=== PATIENT | male | born 1980 | race African-American/Black ===

== ENCOUNTER 2023-12-16 07:09 | Emergency (ER) | payer MEDICAID, MEDICARE ==
[~2023-12-16] VITALS: Ht 175.3 cm; Wt 82.0 kg
[2023-12-16 07:32] VITALS: O2SAT 99
[2023-12-16] MEDS: CHLORDIAZEPOXIDE 25MG CAPSULE PO NR (09:02)
[2023-12-16 10:15] VITALS: BP 112/92; PULSE 72; RESP 18; TEMP 36.94740; O2SAT 98
== END 2023-12-16 10:37 | disposition home or self-care (01) ==
LOC: ER 07:09
DX: F10.239 Alcohol dependence with withdrawal, unspecified (principal); Y90.9 Presence of alcohol in blood, level not specified
CPT/HCPCS: 99291

== ENCOUNTER 2024-03-03 13:51 | Emergency (ER) | payer MEDICARE, OTHER ==
[~2024-03-03] VITALS: Ht 175.3 cm; Wt 79.0 kg
[2024-03-03 14:01] VITALS: TEMP 98.3; O2SAT 100
[2024-03-03] MEDS ORDERED: DOXY100T2 MT (15:21)
[2024-03-03 15:37] VITALS: BP 142/91; PULSE 82; RESP 16; O2SAT 99
[2024-03-03] MEDS: CEFTRIAXONE SODIUM 500MG VIAL IM STA (15:42)
[2024-03-03] MEDS: DOXYCYCLINE HYCLATE 100MG CAPSULE PO SCH (15:43)
[2024-03-03] MEDS: CEFTRIAXONE SODIUM 500MG VIAL IM SCH (15:45)
[2024-03-03] MEDS: DOXYCYCLINE HYCLATE 100MG CAPSULE PO STA (15:47)
== END 2024-03-03 15:49 | disposition home or self-care (01) ==
LOC: ER 14:05
DX: N45.1 Epididymitis (principal)
CPT/HCPCS: 76870; 93976; 96372; 99285; J0696

== ENCOUNTER 2024-04-01 10:22 | Emergency (ER) | payer OTHER ==
[~2024-04-01] VITALS: Ht 175.3 cm; Wt 80.7 kg
[~2024-04-01 10:22] MED LIST: DOXY100T2 MT
[2024-04-01 10:24] VITALS: O2SAT 100
[2024-04-01] MEDS ORDERED: IBUP-2030 MT (10:43)
[2024-04-01] MEDS ORDERED: AMOX1TAB16 MT (10:43)
[2024-04-01 10:47] VITALS: BP 135/98; PULSE 81; RESP 16; TEMP 36.89184; O2SAT 100
== END 2024-04-01 11:28 | disposition home or self-care (01) ==
LOC: ER 10:22
DX: K08.89 Other specified disorders of teeth and supporting structures (principal); F10.20 Alcohol dependence, uncomplicated; Z79.899 Other long term (current) drug therapy; Y90.9 Presence of alcohol in blood, level not specified
CPT/HCPCS: 99283

== ENCOUNTER 2024-11-11 18:04 | Emergency (ER) | payer MEDICAID, OTHER ==
[~2024-11-11] VITALS: Ht 175.3 cm; Wt 81.0 kg
[~2024-11-11 18:04] MED LIST changes: +AMOX1TAB16 MT; +IBUP-1455 MT; +IBUP-2030 MT; +METH-653 MT
[2024-11-11 18:16] VITALS: O2SAT 99
[2024-11-11 18:30] VITALS: BP 131/90; PULSE 100; RESP 17; TEMP 36.9; O2SAT 98
== END 2024-11-11 22:00 | disposition left against medical advice (07) ==
LOC: ER 18:04
DX: M79.643 Pain in unspecified hand (principal); Z53.21 Procedure and treatment not carried out due to patient leaving prior to being seen by health care provider